=== PATIENT | female | born 1985 | race Caucasian/White ===

== ENCOUNTER → 2021-06-20 | Outpatient (CLI) | payer OTHER ==
--- NOTE | 2021-06-20 11:07 | RAD ---
XR EXAM OF ANKLE_RIGHT 3VIEWS dated 06/20/2021 10:58 AM. History: Reason: TWISTED RIGHT ANKLE / Spl. Instructions: / History: Comparison: None. Findings: There is no fracture or dislocation. The bone density is normal. No abnormal periosteal reaction is s een. Joint spaces are maintained. Impression: 1. No acute bony abnormality evident. Electronically signed by: Jw Flores Jr., MD (06/20/2021 11:05 AM) [id number]
== END ==
LOC: PMG 10:37
PROVIDERS: ATTEND Nurse Practitioner Family
DX: S99.911A Unspecified injury of right ankle, initial encounter (principal); W50.2XXA Accidental twist by another person, initial encounter; Y93.89 Activity, other specified; Y92.89 Other specified places as the place of occurrence of the external cause; Y99.8 Other external cause status
CPT/HCPCS: 73610